=== PATIENT | male | born 1980 | race Caucasian/White ===

== ENCOUNTER 2020-01-23 14:40 | Inpatient (IN) | payer OTHER ==
--- NOTE | 2020-01-23 14:59 | BHS.RME ---
Substance Use & Tx History - Substance Use History Heroin Substance amount: 1-2 bundles Frequency of use: Daily Substance route: Injection (ex: intravenous or skin popping) Date of Last Use: 01/23/20 Cocaine-Crack Substance amount: $40 Frequency of use: Daily Substance route: Smoking Date of Last Use: 01/22/20 Nicotine Substance amount: 1.5 to 2 packs Frequency of use: Daily Substance route: Smoking Date of Last Use: 01/23/20 - Last Treatment Date of last treatment: 2 y ago, [facility] Physical/Psych/Mental Status - Behavior General Behavior: Decreased activity Eye Contact: Normal - Cooperativeness Cooperativeness: Cooperative - Thinking Thought Processes: Tight Thought content: Future oriented - Physical Health Problems Is patient presently having any pain?: No Does patient presently have any injuries (include location): No Does patient currently have a fever: No COWS - Scale Resting Pulse: 1= [place] 81-100 Sweatin=Flushed/Facial Moisture Restless Observation: 1= Difficult to Sit Still Pupil Size: 0= Normal to Room Light Bone or Joint Aches: 1= Mild Discomfort Runny Nose/ Eye Tearin= Runny Nose/Eyes GI Upset > 30mins: 2= Nausea/Diarrhea Tremor Observation: 1= Tremor [place], Not Seen Yawning Observation: 0= None Anxiety or Irritability: 2=Irritable/Anxious Goose Flesh Skin: 0=Smooth Skin COWS Score: 12
[2020-01-23 15:21] VITALS: BMI 25.2
--- NOTE | 2020-01-23 15:37 | HP ---
COWS - Scale Resting Pulse: 1= [place] 81-100 Sweatin=Flushed/Facial Moisture Restless Observation: 1= Difficult to Sit Still Pupil Size: 0= Normal to Room Light Bone or Joint Aches: 1= Mild Discomfort Runny Nose/ Eye Tearin= Runny Nose/Eyes GI Upset > 30mins: 2= Nausea/Diarrhea Tremor Observation: 1= Tremor [place], Not Seen Yawning Observation: 0= None Anxiety or Irritability: 2=Irritable/Anxious Goose Flesh Skin: 0=Smooth Skin COWS Score: 12 CIWA Score - Admission Criteria OASAS Guidelines: Admission for Medically Managed Detox: Requires at least one of the followin. CIWA greater than 12 2. Seizures within the past 24 hours 3. Delirium tremens within the past 24 hours 4. Hallucinations within the past 24 hours 5. Acute intervention needed for co occurring medical disorder 6. Acute intervention needed for co occurring psychiatric disorder 7. Severe withdrawal that cannot be handled at a lower level of care (continued vomiting, continued diarrhea, abnormal vital signs) requiring intravenous medication and/or fluids 8. Admitting History and Physical - Admission Chief Complaint: 39 yo M w/history of heroine, crack-cocaine, and nicotine dependence presenting for opioid detox; "detox from heroin." History of Present Illness: 39 yo M w/history of heroine, crack-cocaine, and nicotine dependence presenting for opioid detox; "detox from heroin." This is the pt's first time at [facility]. Pt reports being at [facility] 2 years ago and being sober afterwards until approx 8-9 months ago when he relapsed. Pt reports the trigger was the depth of a family member. Pt reports he wanted to get detox after the onset of his withdrawal symptoms (sweats, insomnia, "shakes", and body aching). Pt meets criteria due to extent of use and, as this is early on in the course of his withdrawal symptoms from heroin. PMH, PSH, Psych - none; no daily meds Soc/Domiciled - homeless at the moment; unemployed Legal - none - Substance Use History Heroin Substance amount: 1-2 bundles Frequency of use: Daily Substance route: Injection (ex: intravenous or skin popping) Date of Last Use: 01/23/20 Cocaine-Crack Substance amount: $40 Frequency of use: Daily Substance route: Smoking Date of Last Use: 01/22/20 Nicotine Substance amount: 1.5 to 2 packs Frequency of use: Daily Substance route: Smoking Date of Last Use: 01/23/20 - Last Treatment Date of last treatment: 2 y ago, [facility] History Source: Patient Limitations to Obtaining History: No Limitations Admission ROS S - Ebola screening Have you traveled outside of the country in the last 21 days: No Have you been sick,other than usual withdrawal symptoms: No Do you have a fever: No - Review of Systems Constitutional: Diaphoresis EENT: reports: Other (rhinorrhea/lacrimation) Respiratory: reports: No Symptoms reported Cardiac: reports: No Symptoms Reported GI: reports: Nausea : reports: No Symptoms Reported (mildly anxious) Musculoskeletal: reports: Muscle Pain (mild muscle aches) Integumentary: reports: Flushing, Sweating (mild sweating), Other (tracking on L arm from IV site of heroin use) Neuro: reports: Tremors (felt but not seen) Endocrine: reports: No Symptoms Reported Hematology: reports: No Symptoms Reported Psychiatric: reports: No Sypmtoms Reported, Orientated x3, Agitated, Anxious Patient History - Smoking Cessation Smoking history: Current every day smoker Have you smoked in the past 12 months: Yes Aproximately how many cigarettes per day: 35 Hx Chewing Tobacco Use: No Initiated information on smoking cessation: Yes 'Breaking Loose' booklet given: 01/23/20 Admission Physical Exam [facility] - Vital Signs Vital Signs: Vital Signs - 24 hr 01/23/20 15:20 Temperature 97.7 F Pulse Rate 94 H Respiratory 12 Rate Blood Pressure 112/75 - Physical General Appearance: Yes: No Apparent Distress, Nourished, Appropriately Dressed, Sweating, Anxious HEENTM: Yes: EOMI, Hearing grossly Normal, Normocephalic, Normal Voice Respiratory: Yes: Lungs Clear, Normal Breath Sounds, No Respiratory Distress, No Accessory Muscle Use Neck: Yes: Supple, Trachea in good position Breast: Yes: Breast Exam Deferred Cardiology: Yes: Regular Rhythm, Regular Rate Abdominal: Yes: Normal Bowel Sounds, Non Tender, Flat, Soft Genitourinary: Yes: Other (deferred) Back: Yes: Normal Inspection Musculoskeletal: Yes: full range of Motion, Gait Steady Extremities: Yes: Normal Inspection, Normal Range of Motion, Non-Tender, Tremors (felt not seen) Neurological: Yes: Fully Oriented, Alert, Motor Strength 5/5 Integumentary: Yes: Normal Color, Dry, Warm, Diaphoresis, Moist, Track [place] (on L arm) Cleared for Admission [facility] - Detox or Rehab [facility] Level of Care: Medically Managed Detox Regimen/Protocol: Methadone Breathalyzer - Breathalyzer Breathalyzer: 0 Urine Drug Screen - Test Device Lot number: [id number] Expiration date: 07/31/21 - Control Is test valid?: Yes - Results Drug screen NEGATIVE: No Urine drug screen results: LIZZY-Cocaine, FEN-Fentanyl, MOP-Opiates Inpatient Rehab Admission - Rehab Decision to Admit Inpatient rehab admission?: No
[2020-01-23] MEDS ORDERED: cloNIDine HCL 0.1 MG TABLET PO PRN (15:53)
[2020-01-23] MEDS ORDERED: MAGNESIUM HYDROX 2400MG/30ML ORAL SUSPENSION 30 ML CUP PO PRN (15:53)
[2020-01-23] MEDS ORDERED: METHOCARBAMOL 500 MG TABLET PO PRN (15:53)
[2020-01-23] MEDS ORDERED: IBUPROFEN 400 MG TABLET (FP) PO PRN (15:53)
[2020-01-23] MEDS ORDERED: MAGNESIUM CITRATE 300 ML BOTTLE PO PRN (15:53)
[2020-01-23] MEDS ORDERED: METHADONE HCL 10 MG TABLET (FOR DETOX USE ONLY) PO ONE (15:53)
[2020-01-23] MEDS ORDERED: ONDANSETRON *ODT* 4 MG TABLET SL PRN (15:53)
[2020-01-23] MEDS ORDERED: MENTHOL/PHENOL 1 EACH UD MM PRN (15:53)
[2020-01-23] MEDS ORDERED: ACETAMINOPHEN 325 MG TABLET (FP) PO PRN ×2 (15:53)
[2020-01-23] MEDS ORDERED: BISMUTH SUBSALICYLATE 524 MG/30 ML UD PO PRN (15:53)
[2020-01-23] MEDS ORDERED: NICOTINE POLACRILEX 2 MG GUM BUC PRN (15:53)
[2020-01-23] MEDS ORDERED: MAG HYDROX/AL HYDROX/SIMETH 30 ML UNIT-DOSE CUP PO PRN (15:53)
[2020-01-23] MEDS: hydrOXYzine PAMOATE 25 MG CAPSULE (FP) PO SCH ×2 (17:49→22:17)
[2020-01-23] MEDS: NICOTINE 21 MG/24 HOURS TOPICAL PATCH TD SCH (18:43)
[2020-01-23] MEDS ORDERED: MELATONIN 5 MG TABLETS PO SCH (22:00)
[2020-01-23] MEDS ORDERED: THIAMINE HCL 100 MG TABLET (FP) PO SCH (22:00)
[2020-01-24] MEDS: hydrOXYzine PAMOATE 25 MG CAPSULE (FP) PO SCH ×2 (05:29→10:45)
[2020-01-24] MEDS ORDERED: METHADONE HCL 5 MG TABLET (FOR DETOX USE ONLY) ONE (09:45)
[2020-01-24] MEDS ORDERED: METHADONE HCL 10 MG TABLET (FOR DETOX USE ONLY) ONE (09:45)
[2020-01-24 09:49] VITALS: BP 112/68; PULSE 90; TEMP 97.7
[2020-01-24] MEDS ORDERED: diazePAM 5 MG TABLET PO PRN (09:49)
--- NOTE | 2020-01-24 09:53 | PN ---
Teaching Attending Note Name of Resident: Jagruti Redd ATTENDING PHYSICIAN STATEMENT I saw and evaluated the patient. I reviewed the resident's note and discussed the case with the resident. I agree with the resident's findings and plan as documented. SUBJECTIVE: OBJECTIVE: ASSESSMENT AND PLAN: 1. Opiate withdrawal Plan 1. Methadone detox protocol
--- NOTE | 2020-01-24 09:55 | EKG ---
Test Reason : Blood Pressure : / mmHG Vent. Rate : 089 BPM Atrial Rate : 089 BPM P-R Int : 176 ms QRS Dur : 090 ms QT Int : 358 ms P-R-T Axes : 071 073 066 degrees QTc Int : 435 ms NORMAL SINUS RHYTHM NORMAL ECG NO PREVIOUS ECGS AVAILABLE Confirmed by KIM OCAMPO MD ([id number]) on 01/24/2020 9:55:37 AM Referred By: Confirmed By:KIM OCAMPO MD
[2020-01-24] MEDS ORDERED: PRENATAL VITAMINS W/ FOLIC ACID TABLET (FP) PO SCH (10:00)
[2020-01-24] MEDS ORDERED: METHADONE (DETOX) 20 MG, METHADONE (DETOX) 5 MG PO ONE (10:00)
[2020-01-24 10:16] LABS: HEMOGLOBIN 13.8 GM/dL (11.7-16.9); MCH 30.8 pg (25.7-33.7); MCHC 33.7 g/dl (32.0-35.9); MEAN CELL VOLUME 91.4 fl (80-96); MEAN PLT VOLUME 7.4 fl (7.5-11.1); PLATELET COUNT 275 K/MM3 (134-434); RBC 4.49 M/mm3 (4.00-5.60); RDW 13.6 % (11.9-15.9); WHITE BLOOD COUNT 9.3 K/mm3 (4.0-10.0)
[2020-01-24 10:22] LABS: ALBUMIN 3.3 g/dl (3.4-5.0); BILIRUBIN,TOTAL 0.2 mg/dL (0.2-1); BLOOD UREA NITROGEN 12.1 mg/dL (7-18); CALCIUM 9.3 mg/dL (8.5-10.1); CREATININE 0.6 mg/dL (0.55-1.3); POTASSIUM 4.2 mmol/L (3.5-5.1)
--- NOTE | 2020-01-24 10:22 | DS ---
[facility] Detox Discharge Summary Admission Date: 01/23/20 Discharge Date: 01/24/20 - History Present History: Opioid Dependence Additional Comments: alert,oriented x 3 ambulation on the unit lung clear on auscultation bilaterally abdomen soft,no pain,no tenderness no edema of legs patient did not want to complete treatment,all attempts to convince patient to stay with no avail,the risks of leaving facility including explained, patient understood,signed release against medical advice,advise to call 911 if not feeling well Pertinent Past History: ivdu nicotine dependence - Physical Exam Results Vital Signs: Vital Signs Temperature 97.7 F 01/24/20 08:35 Pulse Rate 90 01/24/20 08:35 Respiratory Rate 18 01/24/20 08:35 Blood Pressure 112/68 01/24/20 08:35 O2 Sat by Pulse Oximetry (%) 100 01/24/20 06:26 Pertinent Admission Physical Exam Findings: withdrawal signs and symptom Laboratory Last Values WBC 9.3 K/mm3 (4.0-10.0) 01/23/20 07:00 RBC 4.49 M/mm3 (4.00-5.60) 01/23/20 07:00 Hgb 13.8 GM/dL (11.7-16.9) 01/23/20 07:00 Hct 41.0 % (35.4-49) 01/23/20 07:00 MCV 91.4 fl (80-96) 01/23/20 07:00 MCH 30.8 pg (25.7-33.7) 01/23/20 07:00 MCHC 33.7 g/dl (32.0-35.9) 01/23/20 07:00 RDW 13.6 % (11.9-15.9) 01/23/20 07:00 Plt Count 275 K/MM3 (134-434) 01/23/20 07:00 MPV 7.4 fl (7.5-11.1) L 01/23/20 07:00 Sodium 140 mmol/L (136-145) 01/23/20 07:00 Potassium 4.2 mmol/L (3.5-5.1) 01/23/20 07:00 Chloride 106 mmol/L (98-107) 01/23/20 07:00 Carbon Dioxide 29 mmol/L (21-32) 01/23/20 07:00 Anion Gap 5 MMOL/L (8-16) L 01/23/20 07:00 BUN 12.1 mg/dL (7-18) 01/23/20 07:00 Creatinine 0.6 mg/dL (0.55-1.3) 01/23/20 07:00 Est GFR (CKD-EPI)AfAm 147.82 01/23/20 07:00 Est GFR (CKD-EPI)NonAf 127.55 01/23/20 07:00 Random Glucose 108 mg/dL (74-106) H 01/23/20 07:00 Calcium 9.3 mg/dL (8.5-10.1) 01/23/20 07:00 Total Bilirubin 0.2 mg/dL (0.2-1) 01/23/20 07:00 AST 30 U/L (15-37) 01/23/20 07:00 ALT 68 U/L (13-61) H 01/23/20 07:00 Alkaline Phosphatase 120 U/L (45-117) H 01/23/20 07:00 Total Protein 7.0 g/dl (6.4-8.2) 01/23/20 07:00 Albumin 3.3 g/dl (3.4-5.0) L 01/23/20 07:00 Syphilis Serology Non-reactive (NONREACTIVE) 01/23/20 07:00 HIV Ag/Ab Combo Qual Negative (NEGATIVE) 01/23/20 07:00 Vital Signs Temperature 97.7 F 01/24/20 08:35 Pulse Rate 90 01/24/20 08:35 Respiratory Rate 18 01/24/20 08:35 Blood Pressure 112/68 01/24/20 08:35 O2 Sat by Pulse Oximetry (%) 100 01/24/20 06:26 - Medication Discharge Medications: Ambulatory Orders NK [No Known Home Medication] 01/23/20 - Diagnosis (1) Opioid dependence with withdrawal Status: Acute (2) IVDU (intravenous drug user) Status: Acute (3) Cocaine abuse Status: Acute (4) Nicotine dependence Status: Acute - AMA Did Patient Leave Against Medical Advice: Yes
--- NOTE | 2020-01-24 10:22 | PN ---
S COWS - Scale Resting Pulse: 1= [place] 81-100 Sweatin= No chills or Flushing Restless Observation: 0= Sits Still Pupil Size: 1= Pupils >than Normal Bone or Joint Aches: 2= Severe Diffuse Aches Runny Nose/ Eye Tearin= Runny Nose/Eyes GI Upset > 30mins: 2= Nausea/Diarrhea Tremor Observation of Outstretched Hands: 2= Slight Tremor Visible Yawning Observation: 1= 1-2x During Session Anxiety or Irritability: 2=Irritable/Anxious Goose Flesh Skin: 0=Smooth Skin COWS Score: 13 S Progress Note (SOAP) Subjective: alert,irritable,anxious,tremor,pain in the body,back,nausea,diarrhea,vomiting,interrupted sleep Objective: 01/24/20 15:52 Vital Signs Temperature 97.7 F 01/24/20 08:35 Pulse Rate 90 01/24/20 08:35 Respiratory Rate 18 01/24/20 08:35 Blood Pressure 112/68 01/24/20 08:35 O2 Sat by Pulse Oximetry (%) 100 01/24/20 06:26 Laboratory Last Values WBC 9.3 K/mm3 (4.0-10.0) 01/23/20 07:00 RBC 4.49 M/mm3 (4.00-5.60) 01/23/20 07:00 Hgb 13.8 GM/dL (11.7-16.9) 01/23/20 07:00 Hct 41.0 % (35.4-49) 01/23/20 07:00 MCV 91.4 fl (80-96) 01/23/20 07:00 MCH 30.8 pg (25.7-33.7) 01/23/20 07:00 MCHC 33.7 g/dl (32.0-35.9) 01/23/20 07:00 RDW 13.6 % (11.9-15.9) 01/23/20 07:00 Plt Count 275 K/MM3 (134-434) 01/23/20 07:00 MPV 7.4 fl (7.5-11.1) L 01/23/20 07:00 Sodium 140 mmol/L (136-145) 01/23/20 07:00 Potassium 4.2 mmol/L (3.5-5.1) 01/23/20 07:00 Chloride 106 mmol/L (98-107) 01/23/20 07:00 Carbon Dioxide 29 mmol/L (21-32) 01/23/20 07:00 Anion Gap 5 MMOL/L (8-16) L 01/23/20 07:00 BUN 12.1 mg/dL (7-18) 01/23/20 07:00 Creatinine 0.6 mg/dL (0.55-1.3) 01/23/20 07:00 Est GFR (CKD-EPI)AfAm 147.82 01/23/20 07:00 Est GFR (CKD-EPI)NonAf 127.55 01/23/20 07:00 Random Glucose 108 mg/dL (74-106) H 01/23/20 07:00 Calcium 9.3 mg/dL (8.5-10.1) 01/23/20 07:00 Total Bilirubin 0.2 mg/dL (0.2-1) 01/23/20 07:00 AST 30 U/L (15-37) 01/23/20 07:00 ALT 68 U/L (13-61) H 01/23/20 07:00 Alkaline Phosphatase 120 U/L (45-117) H 01/23/20 07:00 Total Protein 7.0 g/dl (6.4-8.2) 01/23/20 07:00 Albumin 3.3 g/dl (3.4-5.0) L 01/23/20 07:00 Syphilis Serology Non-reactive (NONREACTIVE) 01/23/20 07:00 HIV Ag/Ab Combo Qual Negative (NEGATIVE) 01/23/20 07:00 Assessment: 01/24/20 15:53 withdrawal symptom Plan: continue detox methadone regimen,valium 10 mgs po q 4 hr prn for severe withdrawal
[2020-01-24] MEDS: NICOTINE 21 MG/24 HOURS TOPICAL PATCH TD SCH (10:42)
[2020-01-25] MEDS ORDERED: METHADONE HCL 10 MG TABLET (FOR DETOX USE ONLY) PO ONE (10:00)
[2020-01-26] MEDS ORDERED: METHADONE (DETOX) 10 MG, METHADONE (DETOX) 5 MG PO ONE (10:00)
[2020-01-27] MEDS ORDERED: METHADONE HCL 10 MG TABLET (FOR DETOX USE ONLY) PO ONE (10:00)
[2020-01-28] MEDS ORDERED: METHADONE HCL 5 MG TABLET (FOR DETOX USE ONLY) PO ONE (06:00)
== END 2020-01-24 10:12 | disposition left against medical advice (07) | DRG 770 ==
LOC: YASAS 14:40 → Y3N 16:16
PROVIDERS: ADMIT Allergy & Immunology; ATTEND Allergy & Immunology
PROC: HZ2ZZZZ Detoxification Services for Substance Abuse Treatment (ICD-10-PCS; principal; 2020-01-23)
DX: F11.23 Opioid dependence with withdrawal (principal); F14.20 Cocaine dependence, uncomplicated; F17.210 Nicotine dependence, cigarettes, uncomplicated; Z59.0 Homelessness
CPT/HCPCS: 36415; 80053; 85027; 86780; 87389; 93005; 93010; J0735; U0003